=== PATIENT | female | born 2000 | race Hispanic/Latino ===

== ENCOUNTER 2024-12-01 18:39 | Emergency (ER) | payer OTHER, SELFPAY ==
[2024-12-01] MEDS ORDERED: AMOX/K CLAV 875 MG TAB ONE (19:13)
[2024-12-01] MEDS ORDERED: IBUPROFEN 400 MG TAB ONE (19:13)
--- NOTE | 2024-12-01 19:19 | RAD REPORT ---
EXAMINATION: CT MAXILLOFACIAL WITHOUT CONTRAST CLINICAL INDICATION: Fracture;Pain TECHNIQUE: Axial images were obtained through the facial bones and orbits without intravenous contras t. Sagittal and coronal reconstructions were created from the data. One or more of the following dose reduction techniques were used: Automated exposure control, adjustment of the mA and/or kV accor ding to patient size, and/or iterative reconstruction. Unless otherwise specified, incidental findings do not require dedicated imaging follow-up. COMPARISON: No prior exam. FINDINGS: SOFT TISSUE: No significant abnormalities. BONES: Minimal fracture distal nasal bones. ORBITS: The globes are intact. No intraorbital hemorrhage or mass. SINUSES: The visualized paranasal sinuses and mastoid air cells are essentially clear. IMPRESSION: Minimal distal nasal bone fracture.
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
[2024-12-01 19:51] VITALS: TEMP 97.8
[2024-12-01 19:53] VITALS: BP 110/83; O2SAT 100
== END 2024-12-01 19:45 | disposition home or self-care (01) ==
LOC: ER 18:39
DX: S02.2XXA Fracture of nasal bones, initial encounter for closed fracture (principal); Y04.2XXA Assault by strike against or bumped into by another person, initial encounter
CPT/HCPCS: 70486; 76377; 99283